=== PATIENT | male | born 1955 | race African-American/Black ===

== ENCOUNTER 2017-03-09 12:25 | Emergency (ER) | payer OTHER ==
[~2017-03-09] VITALS: Ht 175.3 cm; Wt 80.0 kg
[2017-03-09 13:43] VITALS: BP 129/76
== END 2017-03-09 13:43 | disposition home or self-care (01) | DRG 605 ==
LOC: ED 12:25
PROC: 0HQGXZZ Repair Left Hand Skin, External Approach (ICD-10-PCS; principal; 2017-03-09)
DX: S61.412A Laceration without foreign body of left hand, initial encounter (principal); W26.0XXA Contact with knife, initial encounter; Y93.89 Activity, other specified; Y92.73 Farm field as the place of occurrence of the external cause